=== PATIENT | male | born 1965 | race Caucasian/White ===

== ENCOUNTER → 2021-01-30 | Emergency (ER) | payer MEDICAID ==
[~2021-01-30] MED LIST: HYDR-3965 PO
--- NOTE | 2021-01-30 19:24 | NUR ---
PT LEFT RIGHT AFTER AMBULANCE DROPPED OFF PT IN LOBBY. PER EMS, PT WAS COMPLAINING OF LEFT HIP PAIN AT SCENE BUT WAS NOT COOPERATIVE.
== END | disposition left against medical advice (07) ==
LOC: ER 19:10
DX: M25.552 Pain in left hip (principal); Z53.21 Procedure and treatment not carried out due to patient leaving prior to being seen by health care provider

== ENCOUNTER 2021-01-31 18:19 | Emergency (ER) | payer MEDICAID ==
[~2021-01-31] VITALS: Ht 185.4 cm; Wt 95.0 kg
[2021-01-31 19:16] VITALS: BP 108/68
== END 2021-01-31 19:51 | disposition home or self-care (01) ==
LOC: ER 18:19
DX: M25.552 Pain in left hip (principal); I10 Essential (primary) hypertension; Z76.5 Malingerer [conscious simulation]; Z98.890 Other specified postprocedural states; Z72.89 Other problems related to lifestyle; Z88.2 Allergy status to sulfonamides; Z79.899 Other long term (current) drug therapy
CPT/HCPCS: 99284

== ENCOUNTER 2021-02-01 14:44 | Emergency (ER) | payer MEDICAID ==
[~2021-02-01] VITALS: Ht 177.8 cm; Wt 100.0 kg
[2021-02-01 14:57] VITALS: BP 110/71
== END 2021-02-01 15:15 | disposition left against medical advice (07) ==
LOC: ER 14:44
DX: Z76.5 Malingerer [conscious simulation] (principal); M25.552 Pain in left hip; I10 Essential (primary) hypertension; Z98.890 Other specified postprocedural states; Z72.89 Other problems related to lifestyle; Z88.2 Allergy status to sulfonamides; Z79.899 Other long term (current) drug therapy
CPT/HCPCS: 99283

== ENCOUNTER 2021-07-25 10:35 | Emergency (ER) | payer MEDICAID ==
[~2021-07-25] VITALS: Ht 185.4 cm; Wt 109.1 kg
[2021-07-25] MEDS ORDERED: oxyCODONE/APAP 10/325mg tablet PO ONE (10:40)
[2021-07-25] MEDS ORDERED: PENI250T2 PO (10:42)
[2021-07-25 10:44] VITALS: BP 154/99
--- NOTE | 2021-07-25 10:49 | NUR ---
SCANNER IN TRIAGE NOT WORKING FOR MEDICATION ADMINISTRATION
[2021-07-26] MEDS ORDERED: OXYC-145 PO (14:54)
== END 2021-07-25 10:51 | disposition home or self-care (01) ==
LOC: ER 10:35
DX: K04.7 Periapical abscess without sinus (principal); K08.89 Other specified disorders of teeth and supporting structures; I10 Essential (primary) hypertension; Z98.890 Other specified postprocedural states; Z72.89 Other problems related to lifestyle; Z88.2 Allergy status to sulfonamides; Z79.2 Long term (current) use of antibiotics
CPT/HCPCS: 99283

== ENCOUNTER 2021-07-26 13:54 | Emergency (ER) | payer MEDICAID ==
[~2021-07-26] VITALS: Ht 185.4 cm; Wt 111.0 kg
[~2021-07-26 13:54] MED LIST changes: -HYDR-3965 PO; +PENI250T2 PO
[2021-07-26 14:44] VITALS: BP 168/86
[2021-07-26] MEDS ORDERED: OXYC-145 PO (14:54)
[2021-07-26] MEDS ORDERED: oxyCODONE/APAP 5-325mg tablet PO ONE (14:55)
== END 2021-07-26 15:17 | disposition home or self-care (01) ==
LOC: ER 13:54
DX: K04.7 Periapical abscess without sinus (principal); K08.89 Other specified disorders of teeth and supporting structures; I10 Essential (primary) hypertension; Z98.890 Other specified postprocedural states; Z72.89 Other problems related to lifestyle; Z95.1 Presence of aortocoronary bypass graft; Z88.2 Allergy status to sulfonamides; Z79.2 Long term (current) use of antibiotics
CPT/HCPCS: 99283

== ENCOUNTER 2022-06-27 08:25 | Emergency (ER) | payer MEDICAID ==
[~2022-06-27] VITALS: Ht 185.4 cm; Wt 109.1 kg
[~2022-06-27 08:25] MED LIST changes: +OXYC-145 PO; -PENI250T2 PO
[2022-06-27 08:40] VITALS: BP 160/93
[2022-06-27] MEDS ORDERED: clindamycin 150mg capsule PO ONE (10:25)
[2022-06-27] MEDS ORDERED: HYDROcodone/acetaminophen 5mg/325mg tablet PO ONE (10:25)
[2022-06-27] MEDS ORDERED: IBUP-860 PO (10:35)
[2022-06-27] MEDS ORDERED: CLIN300C54 PO (10:35)
== END 2022-06-27 10:44 | disposition home or self-care (01) ==
LOC: ER 08:25
DX: K08.89 Other specified disorders of teeth and supporting structures (principal); Z88.2 Allergy status to sulfonamides
CPT/HCPCS: 99283

== ENCOUNTER 2022-07-01 14:42 | Emergency (ER) | payer SELFPAY ==
[~2022-07-01] VITALS: Ht 185.4 cm; Wt 106.8 kg
[~2022-07-01 14:42] MED LIST changes: +CLIN300C54 PO; +IBUP-860 PO
[2022-07-01 14:51] VITALS: BP 153/87
== END 2022-07-01 21:11 | disposition left against medical advice (07) ==
LOC: ER 14:43
DX: K08.89 Other specified disorders of teeth and supporting structures (principal); Z53.21 Procedure and treatment not carried out due to patient leaving prior to being seen by health care provider

== ENCOUNTER 2022-07-07 13:36 | Emergency (ER) | payer OTHER ==
[~2022-07-07] VITALS: Ht 180.3 cm; Wt 84.1 kg
[~2022-07-07 13:36] MED LIST changes: -CLIN300C54 PO
[2022-07-07 14:26] VITALS: BP 141/89
== END 2022-07-07 16:41 | disposition left against medical advice (07) ==
LOC: ER 13:37
DX: K13.79 Other lesions of oral mucosa (principal); Z53.21 Procedure and treatment not carried out due to patient leaving prior to being seen by health care provider

== ENCOUNTER 2022-07-12 08:37 | Emergency (ER) | payer MEDICAID, OTHER ==
[~2022-07-12] VITALS: Ht 185.4 cm; Wt 106.8 kg
[2022-07-12] MEDS ORDERED: AMOX-117 PO (09:09)
[2022-07-12] MEDS ORDERED: NAPR-56 PO (09:09)
[2022-07-12] MEDS ORDERED: HYDROcodone/acetaminophen 10/325mg tab PO ONE (09:10)
[2022-07-12] MEDS ORDERED: naproxen 500mg tablet PO ONE (09:10)
[2022-07-12 09:25] VITALS: BP 158/87
== END 2022-07-12 09:27 | disposition home or self-care (01) ==
LOC: ER 08:37
DX: K04.7 Periapical abscess without sinus (principal); K08.89 Other specified disorders of teeth and supporting structures; I10 Essential (primary) hypertension; Z98.890 Other specified postprocedural states; Z72.89 Other problems related to lifestyle; Z88.2 Allergy status to sulfonamides; Z79.2 Long term (current) use of antibiotics; Z79.899 Other long term (current) drug therapy
CPT/HCPCS: 99283

== ENCOUNTER 2023-05-26 12:39 | Emergency (ER) | payer MEDICAID, OTHER, SELFPAY ==
[~2023-05-26] VITALS: Ht 185.4 cm; Wt 109.1 kg
[2023-05-26 13:05] VITALS: BP 171/89; PULSE 72; TEMP 96.5; O2SAT 97
[2023-05-26] MEDS ORDERED: ketorolac trometh inj. 60 MG/2 ML VIAL IM ONE (13:40)
[2023-05-26] MEDS ORDERED: HYDR-3965 PO (13:46)
[2023-05-26 14:06] VITALS: RESP 18
== END 2023-05-26 14:11 | disposition home or self-care (01) ==
LOC: ER 12:40
DX: K08.89 Other specified disorders of teeth and supporting structures (principal); I10 Essential (primary) hypertension; Z72.89 Other problems related to lifestyle; Z96.642 Presence of left artificial hip joint; Z88.1 Allergy status to other antibiotic agents; Z79.899 Other long term (current) drug therapy
CPT/HCPCS: 96372; 99283; J1885

== ENCOUNTER 2023-06-02 08:08 | Emergency (ER) | payer MEDICAID ==
[~2023-06-02] VITALS: Ht 185.4 cm; Wt 109.9 kg
[~2023-06-02 08:08] MED LIST changes: +HYDR-3965 PO
[2023-06-02 08:14] VITALS: BP 152/91; PULSE 83; TEMP 98; O2SAT 98
--- NOTE | 2023-06-02 09:22 | NUR ---
REVIEW SURVEILLANCE INSPECTOR ASSESSMENT. RN AGREES AND SIGNS OFF, LUIS FELIPE V
[2023-06-02] MEDS ORDERED: ketorolac trometh inj. 60 MG/2 ML VIAL IM ONE (09:35)
[2023-06-02] MEDS ORDERED: HYDROcodone/acetaminophen 5mg/325mg tablet PO ONE (09:35)
[2023-06-02] MEDS ORDERED: DOXY150T5 PO (09:38)
[2023-06-02] MEDS ORDERED: NAPR-56 PO (09:38)
[2023-06-02 09:48] VITALS: RESP 18
== END 2023-06-02 10:00 | disposition home or self-care (01) ==
LOC: ER 08:08
DX: K04.7 Periapical abscess without sinus (principal); I10 Essential (primary) hypertension; Z79.899 Other long term (current) drug therapy
CPT/HCPCS: 96372; 99283; J1885